=== PATIENT | female | born 1980 | race Caucasian/White ===

== ENCOUNTER → 2017-12-08 | Emergency (ER) | payer OTHER ==
[~2017-12-08] VITALS: Ht 160 cm; Wt 86.6 kg
[~2017-12-08] MED LIST: ZITHROMAX500 MG PO
== END | disposition home or self-care (01) ==
LOC: ER
DX: S61.422A Laceration with foreign body of left hand, initial encounter (principal); W26.0XXA Contact with knife, initial encounter; Y93.G3 Activity, cooking and baking; Y92.090 Kitchen in other non-institutional residence as the place of occurrence of the external cause; Y99.8 Other external cause status

== ENCOUNTER 2018-05-16 13:45 | Emergency (ER) | payer OTHER ==
[~2018-05-16] VITALS: Ht 160 cm; Wt 85.7 kg
== END 2018-05-16 18:02 | disposition home or self-care (01) ==
LOC: ER 13:45
DX: H66.91 Otitis media, unspecified, right ear (principal); H92.11 Otorrhea, right ear

== ENCOUNTER 2019-03-16 19:13 | Emergency (ER) | payer OTHER ==
[~2019-03-16] VITALS: Ht 157.5 cm; Wt 89.4 kg
== END 2019-03-16 20:11 | disposition home or self-care (01) ==
LOC: ER 19:13
DX: S70.11XA Contusion of right thigh, initial encounter (principal); W18.39XA Other fall on same level, initial encounter; Y93.89 Activity, other specified; Y92.89 Other specified places as the place of occurrence of the external cause; Y99.8 Other external cause status

== ENCOUNTER 2019-09-01 20:59 | Emergency (ER) | payer OTHER ==
[~2019-09-01] VITALS: Ht 160 cm; Wt 86.2 kg
== END 2019-09-01 22:48 | disposition home or self-care (01) ==
LOC: ER 20:59
DX: N39.0 Urinary tract infection, site not specified (principal)

== ENCOUNTER 2020-09-09 22:25 | Inpatient (IN) | payer OTHER ==
[~2020-09-09] VITALS: Ht 160 cm; Wt 97.1 kg
== END 2020-09-13 15:50 | disposition home or self-care (01) | DRG 387 ==
LOC: ER 22:25 → MEDI 09-10 08:50 → MEDJ 09-12 23:03
PROVIDERS: ADMIT Internal Medicine; ATTEND Internal Medicine
PROC: BW24ZZZ Computerized Tomography (CT Scan) of Chest and Abdomen (ICD-10-PCS; principal; 2020-09-10)
PROC: BW21YZZ Computerized Tomography (CT Scan) of Abdomen and Pelvis using Other Contrast (ICD-10-PCS; 2020-09-10)
DX: K51.00 Ulcerative (chronic) pancolitis without complications (principal); N83.202 Unspecified ovarian cyst, left side; N28.1 Cyst of kidney, acquired